=== PATIENT | female | born 1965 | race Caucasian/White ===

== ENCOUNTER 2017-03-06 20:16 | Emergency (ER) | payer MEDICAID, OTHER ==
--- NOTE | 2017-03-06 20:53 | ED Physician Chart ---
ED Chief Complaint/HPI - Patient Information Date Seen:: 03/06/17 Time Seen:: 20:20 Chief Complaint:: Transient L big toe pain with bleeding. History of Present Illness:: Pt had L big toe pain after a bottle had fallen on it at about 4 pm today in a market. Pt now feels much better and has been ambulatory without difficulty. L big toe pain can still be precipitated with excessive wt bearing activities. No weakness or numbness. Pt had transient bleeding at L her big toe that has resolved. Last tetanus immunization is less than 5 years ago. Allergies:: Allergies Allergy/AdvReac Type Severity Reaction Status Date / Time Penicillins Allergy Verified 03/06/17 20:37 Vitals:: Vital Signs - 8 hr 03/06/17 20:25 Temp 97.9 F HR 101 RR 20 BP 133/86 O2 Sat % 95 Historian:: Patient Family MD/PCP:: Dr. Oconnor. LMP:: Postmenopausal for about 2 years. Review:: Nurse's Note Reviewed ED Review of Systems - Review of Systems General/Constitutional: No fever, No weight loss, No weakness, No edema Skin: No skin lesions, No rash, No bruising Head: No headache, No light-headedness Eyes: No loss of vision, No pain, No diplopia ENT: No earache, No nasal drainage, No sore throat, No tinnitus Neck: No neck pain, No swelling Cardio Vascular: No chest pain, No palpitations Pulmonary: No SOB, No cough, No wheezing GI: No nausea, No vomiting, No diarrhea, No pain Musculoskeletal: Bone or joint pain (L big toe pain, see HPI.), No back pain Endocrine: No polyuria, No polydipsia Psychiatric: No prior psych history Hematopoietic: No bruising, No lymphadenopathy Neurological: No weakness, No paresthesia, No headache, No dizziness, No confusion ED Past Medical History - Past Medical History Past Medical History: No significant medical hx Family History: Other (Pt is adopted and does not know her FHx.) Social History: Smoker (5 cigarets daily. Pt has been informed about health risks associated with chronic tobacco use and has been advised to quit. Pt has been encouraged to enroll in a smoking cessation program. Pt acknowledges understanding.), No Alcohol, No Drug Use, , Employed, Other (lives with her ) Employment:: caregiver. Surgical History: Cholecystectomy (laparoscopic cholescystectomy .), C- section (x5 with last one in '06.) Psychiatricy History: None Medication: Reviewed Family Medical History - Family Member Mother History Unknown: Yes ED Physical Exam - Physical Examination General/Constitutional: Awake, Well-developed, well-nourished, Alert, No distress, GCS 15, Non-toxic appearing, Ambulatory Other Gen/Cons comments:: Breathes comfortably, speaks clearly, interacts normally, and ambulates without difficulty. Head: Atraumatic Eyes: Lids, conjuctiva normal, PERRL, EOMI Skin: Well hydrated, No lymphadenopathy ENMT: External ears, nose nl, Nasal exam nl, Oropharynx nl Neck: Nontender, Full ROM w/o pain, No nuchal rigidity, No mass, No stridor Respiratory: Nl effort/Exclusion, Clear to Auscultation, No Wheeze/Rhonchi/Rales Cardio Vascular: RRR (HR 90.), No murmur, gallop, rubs GI: No tenderness/rebounding/guarding, No organomegaly, Normal BS's, Nondistended Other GI comments:: Abdomen is obese but soft. Other Extremities comments:: L big toe: Good ROM of all joints. There is a very small superficial skin break and mild abrasion at proximal dorsum with trace dry blood. No gross deformity, swelling, erythema, or crepitus. No detectable motor/sensory/vascular deficit. Good distal capillary refill. Neuro/Psych: Alert/oriented (oriented x 3), Mood normal, Normal gait, No focal deficits ED Septic Shock - . Is Septic Shock (SBP<90, OR Lactate>4 mmol\L) present?: No - <6hrs of presentation: Vital Signs: Vital Signs - 8 hr 03/06/17 20:25 Temp 97.9 F HR 101 RR 20 BP 133/86 O2 Sat % 95 ED Reassessment (Disposition) - Reassessment Reassessment:: 2114 L big toe X-ray was offered, but pt declined and stated that her L big toe pain has much improved already. Pt will follow with PCP Dr. Oconnor and will consider L big toe X-ray if pain persists or worsens. 2129 Pt feels much better. Pt requests to go home now. Aftercare instructions have been given. Reassessment Condition:: Improved - Diagnosis Diagnosis:: L big toe contusion with associated mild skin break and abrasion. Stable. - Aftercare/Follow up Instructions Aftercare/Follow-Up Instructions:: Refer to Discharge Instructions Notes:: Keep affected area in L big toe clean and dry. Avoid excessive wt bearing activity on L foot until further physician direction. Bruise and wound care instructions given. Keep abrasive area in L big toe clean and dry. May apply Neosporin ointment on affected skin area in L big toe q12h. F/U with PCP Dr. Oconnor in 2-3 days for recheck. Return to ER immediately if condition worsens or if any further questions/problems. Medication Prescribed:: None - Patient Disposition Discharge/Transfer:: Home Time:: 21:38 Condition at Disposition:: Stable, Improved ED Discharge Plan - Patient Disposition Instructions: Abrasion, [id number] Additional Instructions: Keep affected area in left big toe clean and dry. Avoid excessive weight bearing activity on Left Foot until further physician direction. WOUND CARE INSTRUCTIONS: keep abrasive area on Left Big Toe clean and dry. May apply Neosporin ointment on affected skin in Left Big Toe every 12 hours. Follow up with Primary Care Physician Dr. Oconnor in 2-3 days for recheck. Return to ER Immediately if condition worsens or if any further questions/ problems.
[2017-03-06] MEDS ORDERED: Triple Antibiotic 0.94 gm Pkt TP STA (21:07)
[2017-03-06] MEDS ORDERED: Bacitracin pkt 1 gm Pkt TP ONE (21:12)
== END 2017-03-06 21:38 | disposition home or self-care (01) ==
LOC: ER 20:16
DX: S90.112A Contusion of left great toe without damage to nail, initial encounter (principal); X58.XXXA Exposure to other specified factors, initial encounter; Y93.89 Activity, other specified; Y92.89 Other specified places as the place of occurrence of the external cause; Y99.8 Other external cause status
CPT/HCPCS: 99283; Z7610; Z7502